=== PATIENT | male | born 1950 | race Caucasian/White ===

== ENCOUNTER 2025-03-26 15:59 | Emergency (ER) | payer OTHER, SELFPAY ==
[2025-03-26 16:11] VITALS: BP 156/77
[2025-03-26 16:35] LABS: % Basophils 0.8 % (0-2); % Eosinophils 2.1 % (0-6); % Immature Granulocytes 0.3 % (0-0.5); % Lymphocytes 22.2 % (20.5-51.1); % Monocytes 9.8 % (1.7-9.3); % Neutrophils 64.8 % (42.2-75.2); Absolute Basophils 0.1 10^3/uL (0-0.2); Absolute Eosinophils 0.2 10^3/uL (0-0.7); Absolute Lymphocytes 2.3 10^3/uL (1.2-3.4); Absolute Neutrophils 6.9 10^3/uL (1.4-6.5); Hematocrit 34.2 % (39.0-52.0); Hemoglobin 11.7 g/dL (13.0-18.0); Mean Corp Hgb Conc. 34.2 g/dL (33.0-37.0); Mean Corpuscular Hgb 31.6 pg (27.0-31.0); Mean Corpuscular Volume 92.4 fL (80.0-94.0); Mean Platelet Volume 10.3 fL (7.4-10.4); Nucleated Red Blood Cells % 0 % (-); Platelet Count 257 10^3/uL (130-400); Red Cell Dist. Width 13.2 % (11.5-14.5); White Blood Cell Count 10.6 10^3/uL (4.8-10.8)
[2025-03-26 16:39] LABS: Urine Albumin 2+ (Neg - Trace); Urine Bilirubin Negative (Negative); Urine Character Clear (Clear); Urine Color Yellow; Urine Glucose Negative (Negative); Urine Ketone Negative (Negative); Urine Leukocyte Negative (Negative); Urine Nitrite Negative (Negative); Urine Occult Blood Negative (Negative); Urine Specific Gravity 1.025 (<1.030); Urine Urobilinogen Negative (Neg - 1+)
[2025-03-26 16:47] LABS: Urine Bacteria Few (Negative); Urine Red Blood Cell 0-2 /HPF (0-2); Urine White Cell 0-2 /HPF (0-5)
[2025-03-26 16:50] LABS: Blood Urea Nitrogen 21 mg/dl (9-20); Calcium 9.8 mg/dl (8.4-10.2); Carbon Dioxide 25 mmol/L (22-30); Chloride 112 mmol/L (98-107); Glucose 159 mg/dl (70-99); Sodium 141 mmol/L (135-145); eGFR > 60.00
--- NOTE | 2025-03-26 19:14 | ED.GENMED ---
History of Present Illness
General
Chief Complaint: Male Genito-Urinary Symptoms
Source: patient
Exam Limitations: none
Time Seen by Provider: 03/26/25 19:09
History of Present Illness
History of Present Illness:
See MDM
Past History
Past History
ED Past Medical History: HTN, Hypercholesterolemia and NIDDM
Social History
Tobacco: Non-smoker
Alcohol: None
Phy Exam
Physical Exam
Physical Exam:
See MDM
Course
Orders/Labs/Results
Orders:
Orders
03/26/25 16:24
Basic Metabolic Panel Urgent
Complete Blood Count/With Diff Urgent
Urinalysis Reflex To Culture Urgent
Date Specimen was Collected: 03/26/25
Time Specimen was Collected: 16:15
Urine Microscopic Reflex Cult Urgent
03/26/25 19:14
CT Abd/pel Without Iv Or Oral Urgent
Comment:
Reason For Exam: intermittent hematuria
Abnormal Lab Results
03/26/25
16:24
RBC 3.70 L 10^6/uL
(4.70-6.10)
Hgb 11.7 L g/dL
(13.0-18.0)
Hct 34.2 L %
(39.0-52.0)
MCH 31.6 H pg
(27.0-31.0)
Absolute Neuts (auto) 6.9 H 10^3/uL
(1.4-6.5)
Absolute Monos (auto) 1.0 H 10^3/uL
(0.1-0.6)
Monocytes % 9.8 H %
(1.7-9.3)
Chloride 112 H mmol/L
(98-107)
BUN 21 H mg/dl
(9-20)
Glucose 159 H mg/dl
(70-99)
Urine Bacteria (Reflex) Few A
(Negative)
Urine Albumin (Reflex) 2+ A
(Neg - Trace)
03/26/25 16:24
03/26/25 16:24
Vital Signs
Initial and Last Documented VS:
Initial Vital Signs
Temp Pulse Resp BP Pulse Ox
98.5 F 81 18 156/77 97
03/26/25 16:11 03/26/25 16:11 03/26/25 16:11 03/26/25 16:11 03/26/25 16:11
Last Documented Vital Signs
Temp Pulse Resp BP Pulse Ox
98.5 F 81 18 163/69 96
03/26/25 16:11 03/26/25 16:11 03/26/25 16:11 03/26/25 19:23 03/26/25 20:50
MDM/Problems Addressed
Differential Diagnosis Includes:
HPI and MDM Narrative:
74-year-old male presenting for evaluation of intermittent hematuria and passage of 'sand' from his urine. About a month ago, patient was bearing down while constipated. At that time, he noted a debris come out of his penis. Patient described it
as sand. This again occurred last night and earlier today. He denies any abdominal pain or flank pain. Patient is concerned about possible constipation. Blood work and urine done prior to my evaluation. Blood work without significant
abnormality and urine negative for infection or blood. Given his history, will obtain CT to look for any evidence of stones
Physical exam
General: Well appearing and non-toxic
HEENT: protecting airway
Neck: appears supple
CV: No evidence of cyanosis
Resp: No accessory muscle use
Abd: Non-distended. Soft and nontender
Extremities: No deformities
Neuro: alert
Psych: Normal affect
Skin: Intact
Problems Addressed including Acute and Chronic Conditions affecting care:
1. Intermittent hematuria
Acuity: acute
Prognosis: stable
Details: Will obtain CT to rule out any evidence of bladder stone versus kidney stone
Updates
Radiology called indicating calcification seen in bladder. This is either layering of stones or possibly transitional cancer. We discussed outpatient follow-up with urology and discussed the diagnostic possibilities. Patient and aware
Differential Diagnosis (but not limited to): Bladder stone, kidney stone, UTI
Testing considered: Abdominal x-ray
Drug therapy (if applicable): OTC meds, please see d/c instruction regarding Rx drugs
Amount and/or Complexity of Data Reviewed
Clinical info obtained from: Patient
External data reviewed: N/A
Labs I independently reviewed (but not limited to): Urinalysis negative for blood, calcium level normal
Radiology: The CT scan was personally and independently reviewed. In addition, official CT report reviewed.
Pulse Ox: not hypoxic
EKG independently reviewed: N/A
Fish Smoker: N/A
Critical Care: N/A
Risk of Complication:
Social Determinants of health: Good social support
Discussed with other providers: Radiologist
Escalation of Care includes Admit/Obs: After being observed in the Emergency Department, pt stable for discharge.
Occasional wrong word or 'sound a like' substitutions may have occurred due to the inherent limitations of voice recognition software. Read the chart carefully and recognize, using context, where substitutions have occurred.
*Critical Care Note
Total Time (30-74mins, 75-104mins- exclusive of procedures): Not Applicable
ED Attending Note
-
Portions of this chart may have been created with voice recognition software.� Occasional wrong word or��sound alike� substitutions may have occurred due to the inherent limitations of voice recognition software.
Discharge Plan
Departure
Patient Disposition: Home (Routine Discharge)
Date of Disposition: 03/26/25
Time of Disposition: 21:05
Patient with high blood pressure during this ER visit?: Yes
Discharge Problem:
Calcification of bladder
Prescriptions:
No Action
metformin 500 MG tablet
500 mg PO HS
metformin 750 MG tablet extended release 24 hr
1,500 mg PO DAILY
Patient Comments:
takes 1500 g in AM and 500mg in evening
ergocalciferol (vitamin D2) 400 UNIT tablet
400 unit PO DAILY
glimepiride 1 MG tablet
1 mg PO BID
repaglinide 0.5 MG tablet
0.5 mg PO MEALS
lisinopril 10 MG tablet
10 mg PO DAILY
aspirin 81 MG tablet,chewable
81 mg PO DAILY
fluconazole 100 MG tablet
100 mg PO DAILY Qty: 5 0RF
acetaminophen 325 MG tablet
650 mg PO Q4HPRN PRN (Reason: mild pain /fever >100.4) 0RF
miconazole nitrate [Miconazorb AF] 1 APPLIC powder
1 applic topical BID Qty: 1 0RF
amoxicillin-pot clavulanate 1 TABLET tablet
1 tab PO Q12 Qty: 14 0RF
Referrals:
Zoltan Clayton DO [Family Provider, Family Practice]
Edgardo Mays Jr., MD [Active, Urology]
Activity Restrictions/Additional Instructions:
Please return for any worsening symptoms.
You may return at any time if you have further concerns.
Please follow up with the urologist at the first available appointment, preferably this week. Please discuss the bladder calcifications seen on the CT scan. The urologist may want to look inside the bladder to confirm stones or possibly bladder
mass.
Thank you for choosing [facility].
Interventions
Interventions:
*Risk Screen - Suicide Last Done: 03/26/25 16:11
*General Assessment Last Done: 03/26/25 16:11
*Neglect/Abuse Screening Last Done: 03/26/25 19:23
*ED- Fall Risk Assessment Last Done: 03/26/25 19:23
*ED COVID-19 Vaccine History Last Done: 03/26/25 19:23
ED-Male Genitourinary Assessment Last Done: 03/26/25 19:23
Discharge Date and Time
Print Language: HUNGARIAN
[2025-03-26 19:23] VITALS: BP 163/69; BMI 40.4
== END 2025-03-26 21:13 | disposition home or self-care (01) ==
LOC: EMR 15:59
PROVIDERS: Emergency Medicine; EMERGENCY PHYSICIAN Student in an Organized Health Care Education/Training Program; FAMILY PHYSICIAN Family Medicine
DX: N32.89 Other specified disorders of bladder (principal); I10 Essential (primary) hypertension; E78.00 Pure hypercholesterolemia, unspecified; E11.9 Type 2 diabetes mellitus without complications
CPT/HCPCS: 99284; 74176; 80048; 81003; 81015; 85025